=== PATIENT | female | born 1980 | race Caucasian/White ===

== ENCOUNTER 2016-08-26 23:00 | Emergency (ER) | payer BC ==
[~2016-08-26 23:00] MED LIST: ANTIDEPRESSANT; LEVOTHYROXINE100 MC1 PO; MAXALT10 M1 PO; MAXALT10 MG PO; PAROXETINE; SYNTHROID100 MC1 PO; VITAMIN D50000 UNI2 PO
[2016-08-27] MEDS ORDERED: SYNTHROID88 MC1 PO (00:17)
[2016-08-27] MEDS ORDERED: VIIBRYD20 M1 PO (00:18)
[2016-08-27] MEDS ORDERED: UNKNOWN MED (00:19)
== END 2016-08-27 01:24 ==
LOC: EDMED 23:00
DX: G43.909 Migraine, unspecified, not intractable, without status migrainosus (principal)
CPT/HCPCS: J0780; J1200; J1885; J7030